=== PATIENT | female | born 1970 | race African-American/Black ===

== ENCOUNTER 2021-02-25 05:04 | Day surgery (SDC) | payer BC ==
[2021-02-23 15:57] VITALS: BMI 22.6
[2021-02-25] MEDS ORDERED: KETAMINE HCL 200 MG/20 ML VIAL ONE (07:10)
[2021-02-25] MEDS ORDERED: TETRACAINE/BENZOCAINE/BUTAMBEN 20 GM SPR TP ONE (07:43)
[2021-02-25 08:33] VITALS: TEMP 97.8
[2021-02-25 09:14] VITALS: BP 108/64; PULSE 56
== END 2021-02-25 09:30 | disposition home or self-care (01) ==
LOC: JASU-ENDO 05:04
PROVIDERS: ATTEND Internal Medicine Gastroenterology
PROC: 0DJD8ZZ Inspection of Lower Intestinal Tract, Via Natural or Artificial Opening Endoscopic (ICD-10-PCS; principal; 2021-02-25 08:15)
DX: Z12.11 Encounter for screening for malignant neoplasm of colon (principal); K63.89 Other specified diseases of intestine; K64.8 Other hemorrhoids